=== PATIENT | female | born 1980 | race African-American/Black ===

== ENCOUNTER 2016-10-22 11:26 | Outpatient (CLI) | payer SELFPAY ==
--- NOTE | 2016-10-22 12:01 | L&D Flow Sheet ---
LD Flowsheet Datetime Report Generated by CPN: 10/22/2016 12:00 Datetime: 10/22/2016 11:48 NBP Sys/Yazmin/Mean (mmHg): 141 (QS system process) : 95 (QS system process) : 113 (QS system process) Pulse: 85 (QS system process) Communication LaborFlag: Antepartum (QS system process) Datetime: 10/22/2016 11:46 Patient Care Patient Position/Activity: Left Lateral; Low Fowlers (Mabel Marlatt, RN) Datetime: 10/22/2016 11:45 Maternal Assessment Level of Consciousness: Fully Conscious (Mabel Sheffield, RN) DTR's/Clonus: DTRs 2+; No Clonus (Mabel Marlatt, RN) Headache: Denies (Mabel Montañolatt, RN) Breath Sounds, Left: Clear and Equal (Mabel Sabralatt, RN) Breath Sounds, Right: Clear and Equal (Mabel Marlatt, RN) Nausea/Vomiting: Denies (Mabel Marlatt, RN) RUQ Epigastric Pain: Denies (Mabel Montañoladario, RN) Datetime: 10/22/2016 11:44 Vital Signs Stage of : Antepartum (Mabel Sheffield, RN)
[2016-10-22 12:17] LABS: APPEARANCE,URINE SLIGHTLY-CLOUDY; BILIRUBIN,URINE NEGATIVE (NEGATIVE); GLUCOSE, URINE NEGATIVE (NEGATIVE); KETONES,URINE NEGATIVE (NEGATIVE); LEUKOCYTE ESTERASE,URINE TRACE (NEGATIVE); NITRITE,URINE NEGATIVE (NEGATIVE); PROTEIN,URINE NEGATIVE (NEGATIVE); URINE SPECIFIC GRAVITY 1.025; UROBILINOGEN,URINE NEGATIVE mg/dL (<2.0)
[2016-10-22 12:33] LABS: ABSOLUTE EOSINOPHILS # (AUTO) 0.1 10^3/uL (0.0-0.6); ABSOLUTE LYMPHOCYTES (AUTO) 1.7 10^3/uL (0.5-4.7); ABSOLUTE MONOCYTES (AUTO) 0.8 10^3/uL (0.1-1.4); ABSOLUTE NEUT (AUTO) 5.6 10^3/uL (1.7-8.2); EOSINOPHILS % (AUTO) 0.9 % (0-6); HEMATOCRIT 33.1 % (36.0-47.0); HEMOGLOBIN 10.9 g/dL (12.0-15.5); HGB HCT DIFFERENCE -0.4; LYMPHOCYTES % (AUTO) 21.3 % (13-45); MEAN CORPUSCULAR HEMOGLOBIN 26.4 pg (27.0-33.4); MEAN CORPUSCULAR HGB CONC 32.9 g/dL (32.0-36.0); MEAN CORPUSCULAR VOLUME 80 fl (80-97); MONOCYTES % (AUTO) 10.2 % (3-13); RED BLOOD COUNT 4.12 10^6/uL (3.72-5.28); RED CELL DISTRIBUTION WIDTH 15.2 % (11.5-14.0); SEGMENTED NEUTROPHILS % (AUTO) 67.6 % (42-78); WHITE BLOOD COUNT 8.2 10^3/uL (4.0-10.5)
[2016-10-22 12:47] LABS: URINE BARBITURATES SCREEN NEGATIVE; URINE METHADONE SCREEN NEGATIVE; URINE OPIATES LOW NEGATIVE; URINE PHENCYCLIDINE SCREEN NEGATIVE
[2016-10-22 12:57] LABS: ALANINE AMINOTRANSFERASE 32 U/L (9-52); ALBUMIN 3.1 g/dL (3.5-5.0); ALKALINE PHOSPHATASE 95 U/L (38-126); ANION GAP 11 (5-19); ASPARTATE AMINO TRANSFERASE 18 U/L (14-36); BILIRUBIN,TOTAL 0.3 mg/dL (0.2-1.3); BLOOD UREA NITROGEN 9 mg/dL (7-20); CALCIUM 9.5 mg/dL (8.4-10.2); CARBON DIOXIDE 22 mmol/L (22-30); CHLORIDE 103 mmol/L (98-107); CREATININE RESULT 0.61 mg/dL (0.52-1.25); GLUCOSE 83 mg/dL (75-110); LDH 344 U/L (313-618); POTASSIUM 4.5 mmol/L (3.6-5.0); SODIUM 136.3 mmol/L (137-145); TOTAL PROTEIN 6.4 g/dL (6.3-8.2); URIC ACID 5.3 mg/dL (2.5-7.0)
== END 2016-10-22 12:40 | disposition home or self-care (01) ==
LOC: LC 11:26
PROVIDERS: ATTEND Specialist
PROC: 4A1HXCZ Monitoring of Products of Conception, Cardiac Rate, External Approach (ICD-10-PCS; principal; 2016-10-22)
DX: O16.3 Unspecified maternal hypertension, third trimester (principal); O09.523 Supervision of elderly multigravida, third trimester; Z3A.31 31 weeks gestation of pregnancy
CPT/HCPCS: 36415; 80053; 80307; 81001; 83615; 84550; 85025